=== PATIENT | male | born 1985 | race Caucasian/White ===

== ENCOUNTER 2021-04-19 10:29 | Inpatient (IN) | payer OTHER ==
[~2021-04-19] VITALS: Ht 167.6 cm; Wt 106.0 kg
[2021-04-19 11:13] LABS: BASOPHILS % (AUTO) 0.6 % (0.0-2.0); EOSINOPHILS % (AUTO) 0.3 % (1.0-6.0); HEMATOCRIT 40.4 % (41-53); HEMOGLOBIN 14.1 g/dL (13.5-17.5); LYMPHOCYTES # (AUTO) 0.8 K/uL (1.0-4.8); LYMPHOCYTES % (AUTO) 7.6 % (22.0-44.0); MEAN CORPUSCULAR HGB CONC 34.9 G/dL (31.0-37.0); MEAN CORPUSCULAR VOLUME 89 fL (80-100); MONOCYTES # (AUTO) 0.4 K/uL (0.1-1.0); MONOCYTES % (AUTO) 3.6 % (2.0-9.0); PLATELET COUNT (AUTO) 342 K/uL (150-450); RED BLOOD CELL COUNT(AUTO) 4.55 MIL/uL (4.50-5.90); RED CELL DISTRIBUTION WIDTH 13.3 % (11.5-14.5)
[2021-04-19 11:14] LABS: NEUTROPHILS % (AUTO) 87.9 % (40.0-70.0)
[2021-04-19 11:21] LABS: ANION GAP 10 mmol/L (8-16); CALCIUM, TOTAL 9.5 mg/dL (8.8-10.5); CARBON DIOXIDE 28 mmol/L (22-29); CHLORIDE 103 mmol/L (98-107); CREATININE 0.98 mg/dL (0.60-1.30); GLOMERULAR FILTR. RATE CALC > 60 mL/min (>60); GLUCOSE,RANDOM 149 mg/dL (70-110); POTASSIUM 3.9 mmol/L (3.5-5.1); SODIUM SERUM 141 mmol/L (136-145); UREA NITROGEN, BLOOD 9 mg/dL (7-18)
[2021-04-19 11:31] LABS: ALANINE AMINOTRANSFERASE 29 U/L (12-78); ALKALINE PHOSPHATASE 63 U/L (46-116); ASPARTATE AMINOTRANSFERASE 15 U/L (15-37); BILIRUBIN,TOTAL 0.8 mg/dL (0.1-1.0); TOTAL PROTEIN, SERUM 7.7 g/dL (6.4-8.2)
[2021-04-19] MEDS ORDERED: MAGNESIUM SULFATE 2 GM, MVI, ADULT NO.1 WITH VIT K 10 ML, THIAMINE 100 MG, FOLIC ACID 1... IV ONE ×5 (12:00)
[2021-04-19] MEDS ORDERED: LORazepam 2 MG/ML VIAL IVP ONE (12:00)
[2021-04-19] MEDS ORDERED: ONDANSETRON HCL 4 MG/2 ML VIAL IVP PRN ×2 (12:30→13:15)
[2021-04-19] MEDS ORDERED: 0.9% SODIUM CHLORIDE 10 ML SYRINGE IVP PRN (12:30)
[2021-04-19] MEDS ORDERED: ACETAMINOPHEN 325 MG TABLET PO PRN (12:30)
[2021-04-19 13:00] VITALS: BP 125/75
[2021-04-19 13:19] LABS: COVID AG,FIA SOURCE NASOPHARYNGEAL
[2021-04-19] MEDS: SODIUM CHLORIDE 0.9% 1,000 ML IV ONE ×3 (13:26→15:59)
[2021-04-19] MEDS ORDERED: INFLUENZA VIRUS VACCINE QVS 2021-22 (6MO+)/PF 60 MCG/0.5 ML SYRINGE IM. ONE (13:45)
[2021-04-19 15:47] VITALS: BP 131/75
[2021-04-19] MEDS: ChlordiazePOXIDE HCL 10 MG CAPSULE PO SCH ×2 (16:04→23:19)
[2021-04-19] MEDS: DOCUSATE SODIUM 100 MG CAPSULE PO SCH (20:08)
[2021-04-19] MEDS: FAMOTIDINE 20 MG TABLET PO SCH (20:08)
[2021-04-19] MEDS: LORazepam 2 MG/ML VIAL IVP PRN (20:12)
[2021-04-19 20:18] VITALS: BP 132/79
[2021-04-19 22:42] LABS: AMPHET/METH SCREEN,URINE POSITIVE (NEGATIVE); BARBITURATE SCREEN, URINE NEGATIVE (NEGATIVE); BENZODIAZEPINES SCREEN,URINE NEGATIVE (NEGATIVE); CANNABINOID SCREEN,URINE POSITIVE (NEGATIVE); COCAINE SCREEN,URINE NEGATIVE (NEGATIVE); METHADONE SCREEN, URINE NEGATIVE (NEGATIVE); OPIATE SCREEN,URINE POSITIVE (NEGATIVE); PHENCYCLIDINE SCREEN,URINE NEGATIVE (NEGATIVE)
[2021-04-20] MEDS: LORazepam 2 MG/ML VIAL IVP PRN ×3 (02:56→20:46)
[2021-04-20 04:15] VITALS: BP 123/84
[2021-04-20 08:00] VITALS: BP 115/81
[2021-04-20] MEDS: DOCUSATE SODIUM 100 MG CAPSULE PO SCH ×2 (08:40→20:46)
[2021-04-20] MEDS: ChlordiazePOXIDE HCL 10 MG CAPSULE PO SCH ×3 (08:40→23:19)
[2021-04-20] MEDS: FAMOTIDINE 20 MG TABLET PO SCH ×2 (08:40→20:46)
[2021-04-20] MEDS: MULTIVITAMINS WITH MINERALS, THERAPEUTIC TABLET PO SCH (08:40)
[2021-04-20 19:25] VITALS: BP 116/77
[2021-04-20] MEDS: ZOLPIDEM TARTRATE 5 MG TABLET PO PRN (21:37)
[2021-04-21 05:05] VITALS: BP 123/76
[2021-04-21 08:19] VITALS: BP 131/86
[2021-04-21] MEDS: ChlordiazePOXIDE HCL 10 MG CAPSULE PO SCH (08:33)
[2021-04-21] MEDS: MULTIVITAMINS WITH MINERALS, THERAPEUTIC TABLET PO SCH (08:33)
[2021-04-21] MEDS: FAMOTIDINE 20 MG TABLET PO SCH ×2 (08:33→20:09)
[2021-04-21] MEDS: DOCUSATE SODIUM 100 MG CAPSULE PO SCH ×2 (08:33→20:09)
[2021-04-21 11:31] VITALS: BP 126/79
[2021-04-21] MEDS: LORazepam 2 MG/ML VIAL IVP PRN (16:53)
[2021-04-21 16:54] VITALS: BP 128/71
[2021-04-21 19:35] VITALS: BP 102/65
[2021-04-21] MEDS: ZOLPIDEM TARTRATE 5 MG TABLET PO PRN (20:12)
[2021-04-22] MEDS: FAMOTIDINE 20 MG TABLET PO SCH ×2 (08:59→20:12)
[2021-04-22] MEDS: DOCUSATE SODIUM 100 MG CAPSULE PO SCH ×2 (08:59→20:06)
[2021-04-22] MEDS: MULTIVITAMINS WITH MINERALS, THERAPEUTIC TABLET PO SCH (08:59)
[2021-04-22] MEDS: ACETAMINOPHEN 325 MG TABLET PO PRN (20:05)
[2021-04-22] MEDS: ZOLPIDEM TARTRATE 5 MG TABLET PO PRN (20:06)
[2021-04-23] MEDS: ACETAMINOPHEN 325 MG TABLET PO PRN (03:06)
[2021-04-23 04:00] VITALS: BP 115/70
[2021-04-23 07:56] VITALS: BP 121/78
[2021-04-23] MEDS ORDERED: MULT-1239 PO (08:01)
[2021-04-23] MEDS ORDERED: ACET-2247 PO (08:02)
== END 2021-04-23 08:12 | DRG 897 ==
LOC: EDBD 10:29 → EMS 10:29 → 6S 12:50 → EMS 12:57 → 6S 12:57
PROVIDERS: ADMIT Internal Medicine; ATTEND Internal Medicine
DX: F10.139 Alcohol abuse with withdrawal, unspecified (principal); F13.239 Sedative, hypnotic or anxiolytic dependence with withdrawal, unspecified; Y90.0 Blood alcohol level of less than 20 mg/100 ml; Z20.822 Contact with and (suspected) exposure to COVID-19; Z87.891 Personal history of nicotine dependence
CPT/HCPCS: 80053; 85025; 99285; G0480; J2060; J2405; J3411; J3475; J3490; J7030